=== PATIENT | male | born 1985 | race African-American/Black ===

== ENCOUNTER 2018-06-16 13:34 | Emergency (ER) | payer OTHER ==
[~2018-06-16 13:34] MED LIST: Iopamidol 370 76% 100 ML VIAL ONE
[2018-06-16] MEDS ORDERED: Ondansetron PF 4 MG/2 ML Vial ONE (14:02)
[2018-06-16 14:46] LABS: ALT (SGPT) 38 U/L (8-55); AST (SGOT) 25 U/L (5-34); Albumin 4.7 g/dL (3.5-5.0); Alkaline Phosphatase 54 U/L (40-150); Anion Gap 15 mmol/L (10-20); BUN (Urea Nitrogen) 12 mg/dL (8.9-20.6); Bilirubin, Total 0.9 mg/dL (0.2-1.2); Calc. Creatinine Clearance 0 mL/min (70-130); Calcium 9.6 mg/dL (7.8-10.44); Carbon Dioxide 26 mmol/L (22-29); Chloride 104 mmol/L (98-107); Estimated GFR-MDRD Greater than 90; Globulin 3.1 g/dL (2.4-3.5); Glucose 87 mg/dL (70-105); Lipase 13 U/L (8-78); Potassium 4.1 mmol/L (3.5-5.1); Protein, Total 7.8 g/dL (6.0-8.3); Sodium 141 mmol/L (136-145)
--- NOTE | 2018-06-16 14:56 | RAD ---
ABDOMEN TWO VIEWS: CHEST ONE VIEW: HISTORY: Lumbar back pain and tenderness. Lower abdominal pain, radiating to back. FINDINGS: No significant acute intrathoracic disease. In the abdomen, there is some scattered gas and fecal ma terial in the colon. No overt calculi. No bowel obstruction or free air. IMPRESSION: Unremarkable chest one view and abdomen two views. POS: OFF
[2018-06-16 15:09] LABS: Band 6 % (5-11); Eosinophils 1 % (0-10); Hemoglobin 17.8 g/dL (14.0-18.0); Lymphocytes 12 % (21-51); MDiff Complete? YES; Mean Corpuscular HGB CONC 33.5 g/dL (32.0-36.0); Mean Corpuscular Hemoglobin 30.5 pg (27.0-31.0); Mean Corpuscular Volume 91.3 fL (78.0-98.0); Mean Platelet Volume 7.8 fL (7.4-10.4); Monocytes 4 % (0-10); Neutrophil 77 % (42-75); Platelet Count 236 thou/uL (130-400); Platelet Morphology Comment Appears Adequate; RBC Distribution Width 13.3 % (11.5-14.5); Red Blood Cell (RBC) Count 5.83 mill/uL (4.70-6.10); White Blood Cell (WBC) Count 6.8 thou/uL (4.8-10.8)
[2018-06-16] MEDS ORDERED: Acetaminophen 650 MG Suppository ONE ×2 (15:34→17:40)
[2018-06-16 16:16] LABS: Bilirubin Negative (Negative); Blood, Urine Negative (Negative); Clarity Slightly Cloudy (Clear); Glucose, Urine (Dipstick) Negative (Negative); Leukocyte Negative (Negative); Nitrite Negative (Negative); Protein, Urine (Dipstick) Trace mg/dL (Neg-Trace); Specific Gravity, Urine 1.015 (1.005-1.030); pH, Urine 8.5 (5.0-9.0)
[2018-06-16] MEDS ORDERED: Promethazine HCl 25 MG/ML VIAL ONE (17:09)
[2018-06-16] MEDS ORDERED: Diazepam 2.5 MG GEL ONE (17:40)
[2018-06-16 18:06] LABS: Lactic Acid 1.7 mmol/L (0.5-2.2)
--- NOTE | 2018-06-16 18:45 | CT ---
CONTRAST ENHANCED CT IMAGES ABDOMEN AND PELVIS: 06/16/18 HISTORY: Abdominal pain. IV and oral contrast was given. Some minimal areas of atelectasis seen in both lung bases. No evidence of free intraperitoneal air seen. The liver and spleen are unremarkable. The gallbladder and pancreas are unremarkable. Adrenal glands and kidneys are unremarkable. No dilated loops of small bowel seen. A normal appendix is visualized. The colon is unremarkable. No evidence of retroperitoneal or mesenteric lymphadenopathy seen. Osseous structures are intact. IMPRESSION: Unremarkable contrast enhanced CT images of the abdomen and pelvis. POS: [facility]
== END 2018-06-16 18:55 | disposition home or self-care (01) ==
LOC: SCSER 13:34
DX: R10.31 Right lower quadrant pain (principal); R10.32 Left lower quadrant pain; R50.9 Fever, unspecified; R11.2 Nausea with vomiting, unspecified; R19.7 Diarrhea, unspecified; R10.812 Left upper quadrant abdominal tenderness; R10.816 Epigastric abdominal tenderness; I10 Essential (primary) hypertension; K21.9 Gastro-esophageal reflux disease without esophagitis; F41.9 Anxiety disorder, unspecified; F32.9 Major depressive disorder, single episode, unspecified; Z79.899 Other long term (current) drug therapy
CPT/HCPCS: 74022; 74177; 80053; 81003; 83605; 83690; 85025; 96361; 96365; 96375; J2405; J2550; Q9967

== ENCOUNTER 2023-01-28 22:41 | Inpatient (IN) | payer OTHER ==
[2023-01-28] MEDS ORDERED: HYDROmorphone 0.5 MG/0.5 ML SYRINGE ONE (23:35)
[2023-01-29] MEDS ORDERED: TETANUS, DIPHTHERIA TOX,ADULT (TDVAX) 0.5 ML VIAL IM ONE (02:32)
[2023-01-29] MEDS ORDERED: Dextrose 5% in Water 1,000 ML IV PRN (02:32)
[2023-01-29] MEDS ORDERED: traMADol HCl 50 MG TAB PO PRN (02:32)
[2023-01-29] MEDS ORDERED: Ipratropium/Albuterol 3 ML NEB NEB PRN (02:32)
[2023-01-29] MEDS ORDERED: Ondansetron PF 4 MG/2 ML Vial IVP PRN (02:32)
[2023-01-29] MEDS ORDERED: hydrALAZINE 20 MG/ML VIAL SLOW IVP PRN (02:32)
[2023-01-29] MEDS ORDERED: Glucagon 1 MG/ML KIT IM PRN (02:32)
[2023-01-29] MEDS ORDERED: Morphine 2 MG/ML VIAL SLOW IVP PRN (02:32)
[2023-01-29] MEDS ORDERED: Dextrose 50% Abboject 50 ML SYRINGE SLOW IVP PRN (02:32)
[2023-01-29 02:35] VITALS: BMI 42.8
[2023-01-29] MEDS ORDERED: Morphine 2 MG/ML VIAL ONE (02:57)
[2023-01-29] MEDS ORDERED: traMADol HCl 50 MG TAB ONE ×3 (02:57→20:23)
[2023-01-29] MEDS ORDERED: Acetaminophen 325 MG TAB ONE (02:57)
[2023-01-29] MEDS ORDERED: Acetaminophen 325 MG TAB PO SCH (03:00)
[2023-01-29] MEDS: Sodium Chloride 0.9% 1,000 ML IV SCH ×2 (03:30→20:18)
[2023-01-29] MEDS ORDERED: Boostrix 0.5 ML (Tdap) VIAL (>/=7 yrs of age) ONE (03:40)
[2023-01-29] MEDS ORDERED: Morphine 4 MG/ML VIAL ONE ×2 (05:56→10:08)
[2023-01-29] MEDS ORDERED: Acetaminophen 500 MG TAB ONE (05:56)
[2023-01-29] MEDS ORDERED: Acetaminophen 500 MG TAB PO SCH (06:00)
[2023-01-29] MEDS: Morphine 4 MG/ML VIAL SLOW IVP PRN ×2 (06:02→10:14)
[2023-01-29] MEDS: traMADol HCl 50 MG TAB PO SCH ×2 (06:03→20:30)
[2023-01-29] MEDS ORDERED: CEFAZOLIN 2 GM in Sodium Chloride 0.9% 100 ML IVPB SCH (08:15)
[2023-01-29 09:07] LABS: Anion Gap 13 mmol/L (10-20); BUN (Urea Nitrogen) 12 mg/dL (8.9-20.6); Calc. Creatinine Clearance 197 mL/min (70-130); Calcium 8.8 mg/dL (7.8-10.44); Carbon Dioxide 21 mmol/L (22-29); Chloride 105 mmol/L (98-107); Estimated GFR 95; Glucose 112 mg/dL (70-105); Sodium 135 mmol/L (136-145)
[2023-01-29] MEDS ORDERED: Famotidine/PF 20 mg/2ml Vial ONE ×2 (10:07→20:24)
[2023-01-29] MEDS: Famotidine/PF 20 mg/2ml Vial SLOW IVP SCH ×2 (10:14→20:38)
[2023-01-29] MEDS ORDERED: Gabapentin 300 MG CAP PO SCH (10:15)
[2023-01-29] MEDS ORDERED: Acetaminophen/Codeine 30-300mg Tablet ONE ×2 (11:18→20:24)
[2023-01-29] MEDS: Acetaminophen/Codeine 30-300mg Tablet PO SCH ×3 (11:22→23:33)
[2023-01-29] MEDS ORDERED: fentaNYL 50 mcg/mL 1 mL Vial ONE ×2 (13:25→18:09)
[2023-01-29] MEDS ORDERED: Midazolam HCl 2 mg/2 ml Vial ONE (13:25)
[2023-01-29] MEDS ORDERED: Bupivacaine PF 0.5% 30 ML VIAL ONE (13:25)
[2023-01-29] MEDS ORDERED: Bupivacaine HCl 0.5%/Epinephrine 1:200,000/PF 30 ml Vial ONE (13:45)
[2023-01-29] MEDS ORDERED: CEFAZOLIN 2 GM VIAL ONE ×2 (15:22→20:24)
[2023-01-29] MEDS ORDERED: Fentanyl 250 MCG/5 ML VIAL ONE (15:22)
[2023-01-29] MEDS ORDERED: Sodium Chloride 0.9% 100 ML ONE ×2 (15:22→20:25)
[2023-01-29] MEDS ORDERED: Rocuronium Bromide 10 MG/ML (10ML VIAL) ONE (15:44)
[2023-01-29] MEDS ORDERED: Dexamethasone 20 MG/5 ML VIAL ONE (15:44)
[2023-01-29] MEDS ORDERED: Ondansetron PF 4 MG/2 ML Vial ONE (15:44)
[2023-01-29] MEDS ORDERED: PROPOFOL 200 MG/20 ML VIAL ONE (15:44)
[2023-01-29] MEDS ORDERED: Lidocaine 1% PF 5 ML VIAL ONE (15:44)
[2023-01-29] MEDS ORDERED: Ketorolac Tromethamine 30 MG/ML VIAL ONE (15:44)
[2023-01-29] MEDS ORDERED: Dexmedetomidine 200 MCG/2 ML VIAL ONE (16:17)
[2023-01-29] MEDS ORDERED: Sevoflurane 250 ML INH ANEST BOTTLE ONE (16:20)
[2023-01-29] MEDS ORDERED: SUGAMMADEX SODIUM 200 MG/2 ML VIAL ONE (16:44)
[2023-01-29] MEDS ORDERED: HYDROmorphone 2 MG/ML VIAL SLOW IVP PRN (17:12)
[2023-01-29] MEDS ORDERED: Ondansetron HCl/PF 4 MG/2 ML Vial IVP PRN (17:12)
[2023-01-29] MEDS ORDERED: Promethazine HCl 25 MG/ML VIAL IM PRN (17:12)
[2023-01-29] MEDS: Gabapentin 300 MG CAP PO SCH (20:46)
[2023-01-29] MEDS: CEFAZOLIN 2 GM in Sodium Chloride 0.9% 100 ML IVPB SCH (21:26)
[2023-01-30] MEDS: traMADol HCl 50 MG TAB PO SCH ×4 (01:31→11:57)
[2023-01-30] MEDS: Gabapentin 300 MG CAP PO SCH ×4 (02:19→21:28)
[2023-01-30] MEDS: Acetaminophen/Codeine 30-300mg Tablet PO SCH ×4 (05:31→23:22)
[2023-01-30] MEDS: CEFAZOLIN 2 GM in Sodium Chloride 0.9% 100 ML IVPB SCH ×3 (05:47→21:30)
[2023-01-30] MEDS: Sodium Chloride 0.9% 1,000 ML IV SCH ×2 (05:48→07:59)
[2023-01-30 08:06] LABS: #Monocytes 1.1 thou/uL (0.11-0.59); #Neutrophils 4.4 thou/uL (1.40-6.50); %Basophils 0.2 % (0.0-1.0); %Eosinophils 0.2 % (0.0-10.0); %Lymphocytes 11.3 % (21.0-51.0); %Monocytes 17.7 % (0.0-10.0); %Neutrophils 70.3 % (42.0-75.0); Hematocrit 32.6 % (42.0-52.0); Hemoglobin 10.9 g/dL (14.0-18.0); Mean Corpuscular HGB CONC 33.4 g/dL (32.0-36.0); Mean Corpuscular Volume 95.6 fl (78.0-98.0); Platelet Count 208 10x3/uL (130-400); RBC Distribution Width 13.8 % (11.5-14.5); Red Blood Cell (RBC) Count 3.41 mill/uL (4.70-6.10); White Blood Cell (WBC) Count 6.2 10x3/uL (4.8-10.8)
[2023-01-30 08:30] LABS: Anion Gap 14 mmol/L (10-20); BUN (Urea Nitrogen) 14 mg/dL (8.9-20.6); Calc. Creatinine Clearance 174 mL/min (70-130); Calcium 8.5 mg/dL (7.8-10.44); Carbon Dioxide 22 mmol/L (22-29); Chloride 107 mmol/L (98-107); Estimated GFR 82; Glucose 116 mg/dL (70-105); Potassium 4.6 mmol/L (3.5-5.1); Sodium 138 mmol/L (136-145)
[2023-01-30] MEDS: Famotidine/PF 20 mg/2ml Vial SLOW IVP SCH (10:29)
[2023-01-30] MEDS ORDERED: hydrOXYzine 25 MG TAB PO PRN (12:11)
[2023-01-30] MEDS: Morphine 4 MG/ML VIAL SLOW IVP PRN (21:29)
[2023-01-30] MEDS: Acetaminophen/Codeine 30-300mg Tablet PO PRN (23:14)
[2023-01-30] MEDS: Cyclobenzaprine 10 MG TAB PO PRN (23:21)
[2023-01-31] MEDS: Morphine 4 MG/ML VIAL SLOW IVP PRN (01:31)
[2023-01-31] MEDS: Acetaminophen/Codeine 30-300mg Tablet PO PRN ×2 (03:49→08:14)
[2023-01-31] MEDS: Cyclobenzaprine 10 MG TAB PO PRN (03:49)
[2023-01-31] MEDS: Acetaminophen/Codeine 30-300mg Tablet PO SCH (03:50)
[2023-01-31] MEDS: CEFAZOLIN 2 GM in Sodium Chloride 0.9% 100 ML IVPB SCH ×2 (05:36→14:57)
[2023-01-31 06:52] LABS: #Eosinphils 0.1 thou/uL (0.0-0.7); #Monocytes 0.7 thou/uL (0.11-0.59); #Neutrophils 2.4 thou/uL (1.40-6.50); %Basophils 0.2 % (0.0-1.0); %Eosinophils 2.9 % (0.0-10.0); %Lymphocytes 31.6 % (21.0-51.0); %Monocytes 13.9 % (0.0-10.0); Hematocrit 29.9 % (42.0-52.0); Mean Corpuscular HGB CONC 33.4 g/dL (32.0-36.0); Mean Corpuscular Hemoglobin 32.5 pg (27.0-31.0); Mean Corpuscular Volume 97.1 fl (78.0-98.0); Mean Platelet Volume 9.9 fL (7.4-10.4); Platelet Count 201 10x3/uL (130-400); RBC Distribution Width 14.1 % (11.5-14.5); Red Blood Cell (RBC) Count 3.08 mill/uL (4.70-6.10); White Blood Cell (WBC) Count 4.8 10x3/uL (4.8-10.8)
[2023-01-31] MEDS: Gabapentin 300 MG CAP PO SCH ×2 (08:13→14:58)
[2023-01-31] MEDS ORDERED: Famotidine 20 MG TAB PO SCH (09:00)
[2023-01-31] MEDS ORDERED: Topiramate 25 MG TAB PO SCH (09:00)
[2023-01-31] MEDS ORDERED: Amlodipine 5 MG TAB PO SCH (09:00)
[2023-01-31] MEDS ORDERED: HYDROcodone/Acetaminophen 7.5/325 mg Tablet PO PRN ×2 (10:34)
[2023-01-31 16:08] VITALS: BP 115/75; TEMP 98.5
== END 2023-01-31 16:20 | disposition home or self-care (01) | DRG 482 ==
LOC: ERS 22:41 → ERHOLD 01-29 01:48 → INTOOBSV 01-29 01:48 → SURG A 01-29 12:49 → OBSVTOIN 01-30 15:13
PROVIDERS: ADMIT Surgery; ATTEND Surgery
PROC: 0QS806Z Reposition Right Femoral Shaft with Intramedullary Internal Fixation Device, Open Approach (ICD-10-PCS; principal; 2023-01-29)
DX: S72.301A Unspecified fracture of shaft of right femur, initial encounter for closed fracture (principal); K21.9 Gastro-esophageal reflux disease without esophagitis; I10 Essential (primary) hypertension; F31.9 Bipolar disorder, unspecified; F43.10 Post-traumatic stress disorder, unspecified; F20.9 Schizophrenia, unspecified; Z79.899 Other long term (current) drug therapy; Z98.890 Other specified postprocedural states; V89.2XXA Person injured in unspecified motor-vehicle accident, traffic, initial encounter
CPT/HCPCS: 36415; 36416; 80048; 85025; 90715; 96374; C1713; G0390; J1100; J1170; J1650; J1885; J2250; J2270; J2272; J2405; J2704; J3010; J3490; J7050; S0020; S0028